=== PATIENT | male | born 1995 | race Caucasian/White ===

== ENCOUNTER → 2018-10-14 | Outpatient (CLI) | payer MEDICARE, OTHER ==
--- NOTE | 2018-10-14 14:08 | US ---
EXAMINATION TYPE: US venous doppler duplex LE DATE OF EXAM: 10/14/2018 1:02 PM COMPARISON: NONE CLINICAL HISTORY: R20.9 Disturbance of skin, R60.0 Edema, G80.9. Cold left foot; Cerebral Palsy patie nt with cold left foot, decreased hair growth left lower leg; black discoloration to distal left grea t toe and cyanosis to left 2nd toe; no swelling seen SIDE PERFORMED: Bilateral TECHNIQUE: The lower extremity deep venous system is examined utilizing real time linear array sonog michelle with graded compression, doppler sonography and color-flow sonography. VESSELS IMAGED: US is technically limited due to constant patient motion and limb flexion bilaterally Common Femoral Vein Deep Femoral Vein Greater Saphenous Vein * Femoral Vein Popliteal Vein Small Saphenous Vein * Proximal Calf Veins (* superficial vessels) Grayscale, color doppler, spectral doppler imaging performed of the deep veins of the lower extremiti es. There is normal flow, compressibility, vascular waveforms. Right Leg: Negative for DVT as tech was able to assess Left Leg: Negative for DVT as tech was able to assess IMPRESSION: Given technical limitations as described above there is no sonographic evidence of acute deep venous thrombosis within the bilateral lower extremities.
--- NOTE | 2018-10-15 10:06 | P.ARTDOP ---
Arterial Doppler LOWER EXTREMITY ARTERIAL DOPPLER: DATE OF SERVICE: 10/14/2018 Reason for study: Black toes left foot and cold left foot. Doppler waveforms: Difficult to read due to constant motion. Appear to be multiphasic bilaterally throughout. Pulse volume recording: Toe plethysmography waveforms appear normal in all digits.. Pressure gradients: None noted. Ankle-brachial indices: Greater than 1 bilaterally. Toe pressures: [] on the right, [] on the left Impression: Normal ankle pressures and normal digital plethysmography suggests normal study.
== END ==
LOC: RADUSWWP 12:06
PROVIDERS: ATTEND Family Medicine
DX: R20.9 Unspecified disturbances of skin sensation (principal); R60.0 Localized edema; G80.9 Cerebral palsy, unspecified
CPT/HCPCS: 93922; 93970